=== PATIENT | female | born 2000 | race Caucasian/White ===

== ENCOUNTER 2020-04-18 14:12 | Emergency (ER) | payer SELFPAY ==
[~2020-04-18] VITALS: Ht 177.8 cm; Wt 58.0 kg
[2020-04-18 14:24] VITALS: BP 105/66
[2020-04-18] MEDS ORDERED: PENI500T PO (14:39)
[2020-04-18] MEDS ORDERED: CHLO15MO2 SWSP (14:39)
[2020-04-18] MEDS ORDERED: IBUP800T19 PO (14:39)
--- NOTE | 2020-04-18 14:40 | PHYS DOC ---
Past History Past Medical History: Asthma Past Surgical History: Tonsillectomy Smoking: Cigarettes, Less than 1pk/day Additional Smoking Information: 04/24 PPD Alcohol Use: Rarely Drug Use: None General Adult EDM: Chief Complaint: DENTAL PROBLEM HPI: HPI: Patient is a 19-year-old female who presents emergency department with complaints of left upper dental pain with a broken tooth for several months. Patient reports she was fussy go to the dentist and only for today but was unable to due to the weather. Reports taking Aleve and Tylenol at home with little benefit. She denies any nausea, vomiting, abdominal pain, sore throat, fever, or ear pain. Patient states she accidentally cracked her tooth on her tongue morning a few months ago and the tooth is hurt since then. She currently rates her pain 8 out of 10 on pain scale, she denies any alleviating factors. Review of Systems: Review of Systems: Complete ROS is negative unless otherwise noted in HPI. Allergies: Allergies: Allergies Coded Allergies Type Severity Reaction Last Updated Verified No Known Drug Allergies 04/18/20 No Physical Exam: PE: See Above Constitutional: Well developed, well nourished, no acute distress, non-toxic appearance. [] HENT: Normocephalic, atraumatic, bilateral external ears normal, nose normal; gingival erythema and edema in the left upper quadrant consistent with gingivitis, the first molar on the upper left is noted to be broken with diffuse decay present, no palpable or visible dental abscess [] Eyes: PERRLA, EOMI, conjunctiva normal, no discharge. [] Neck: Normal range of motion, supple, no stridor. [] Cardiovascular:Heart rate regular rhythm Lungs & Thorax: Respirations even and unlabored, no retractions, no respiratory distress Skin: Warm, dry, no erythema, no rash. [] Extremities: No cyanosis, ROM intact, no edema. [] Neurologic: Alert and oriented X 3, no focal deficits noted. [] Psychologic: Affect normal, judgement normal, mood normal. [] Current Patient Data: Vital Signs: Vital Signs Date Time Temp Pulse Resp B/P (MAP) Pulse Ox O2 Delivery O2 Flow Rate FiO2 04/18/20 14:24 98.1 98 16 105/66 (79) 100 EKG: EKG: [] Radiology/Procedures: Radiology/Procedures: [] Heart Score: Risk Factors: Risk Factors: DM, Current or recent (<one month) smoker, HTN, HLP, family history of CAD, obesity. Risk Scores: Score 0 - 3: 2.5% MACE over next 6 weeks - Discharge Home Score 4 - 6: 20.3% MACE over next 6 weeks - Admit for Clinical Observation Score 7 - 10: 72.7% MACE over next 6 weeks - Early Invasive Strategies Course & Med Decision Making: Course & Med Decision Making Pertinent Labs and Imaging studies reviewed. (See chart for details) [] Dragon Disclaimer: Dragon Disclaimer: This electronic medical record was generated, in whole or in part, using a voice recognition dictation system. Departure Departure: Impression: Primary Impression: Broken tooth Qualified Codes: S02.5XXB - Fracture of tooth (traumatic), initial encounter for open fracture Additional Impressions: Infected dental caries Dentalgia Gingivitis, acute Disposition: 01 DC HOME SELF CARE/HOMELESS Condition: STABLE Patient Instructions: Dental Caries, Dental Pain, [id number], Gingivitis, [id number] Additional Instructions: Fill prescription(s) and use as directed. Follow up with dentist using the referral list provided. Return to the ER if symptoms worsen. Scripts Chlorhexidine Gluconate (PERIDEX) 15 Ml Mouthwash 15 ML SWSP BID for gingivitis for 30 Days, #473 ML 0 Refills Be sure to brush your teeth before using this medication as it can cause staining. Do not eat or drink for at least 30 minutes after use. Prov: [employer] 04/18/20 Ibuprofen (IBUPROFEN) 800 Mg Tablet 1 TAB PO TID PRN for PAIN for 10 Days, #30 TAB 0 Refills Prov: [employer] 04/18/20 Penicillin V Potassium (PENICILLIN V POTASSIUM) 500 Mg Tablet 1 TAB PO QID for dental infection for 10 Days, #40 TAB 0 Refills Prov: [employer] 04/18/20 [employer] Apr 18, 2020 14:40
== END 2020-04-18 14:50 | disposition home or self-care (01) ==
LOC: ER 14:43
DX: S02.5XXB Fracture of tooth (traumatic), initial encounter for open fracture (principal); K02.9 Dental caries, unspecified; K04.7 Periapical abscess without sinus; K05.00 Acute gingivitis, plaque induced; J45.909 Unspecified asthma, uncomplicated; F17.210 Nicotine dependence, cigarettes, uncomplicated; X58.XXXA Exposure to other specified factors, initial encounter; Y93.89 Activity, other specified; Y92.89 Other specified places as the place of occurrence of the external cause; Y99.8 Other external cause status
CPT/HCPCS: 99283